=== PATIENT | female | born 1990 | race Caucasian/White ===

== ENCOUNTER 2020-07-04 00:59 | Emergency (ER) | payer OTHER ==
[~2020-07-04] VITALS: Ht 154.9 cm; Wt 56.7 kg
[~2020-07-04 00:59] MED LIST: NABUMETONE500 MG PO; PROZAC20 MG; TUSSIONEX PENNKI5 ML PO
[2020-07-04] MEDS ORDERED: CLONAZEPAM0.5 MG PO (01:33)
== END 2020-07-04 04:32 | disposition home or self-care (01) ==
LOC: ER 00:59
DX: R00.2 Palpitations (principal); F06.4 Anxiety disorder due to known physiological condition

== ENCOUNTER 2021-07-25 19:45 | Emergency (ER) | payer OTHER ==
[~2021-07-25] VITALS: Ht 152.4 cm; Wt 59.0 kg
[~2021-07-25 19:45] MED LIST changes: +CLONAZEPAM0.5 MG PO
[2021-07-26] MEDS ORDERED: KETO10TA2 PO (00:57)
== END 2021-07-26 01:02 | disposition home or self-care (01) ==
LOC: ER 19:45
DX: R10.2 Pelvic and perineal pain (principal)